=== PATIENT | female | born 1950 | race American Indian/Alaskan Native ===

== ENCOUNTER 2019-08-07 03:39 | Emergency (ER) | payer OTHER, MEDICARE ==
[~2019-08-07] VITALS: Ht 162.6 cm; Wt 77.1 kg
[2019-08-07] MEDS ORDERED: TIZANIDINE HCL4 MG PO (03:51)
[2019-08-07] MEDS ORDERED: AUGMENTIN 875-1 EACH PO (03:52)
[2019-08-07] MEDS ORDERED: FORTAMET500 MG PO (03:53)
[2019-08-07] MEDS ORDERED: PROBIOTIC & AC1 EACH PO (03:54)
[2019-08-07] MEDS ORDERED: FLAX SEED OIL1000 MG PO (03:55)
[2019-08-07] MEDS ORDERED: FUROSEMIDE40 MG PO (03:55)
[2019-08-07] MEDS ORDERED: NOVOLOG FL100 UNIT/1 SUB-Q (03:58)
[2019-08-07] MEDS ORDERED: ZESTRIL2.5 MG PO (03:59)
[2019-08-07] MEDS ORDERED: LEVEMIR FL100 UNIT/2 SQ (04:00)
[2019-08-07] MEDS ORDERED: PERCOCET 5-3251 EACH PO (05:27)
--- OUTSIDE RECORDS SUMMARY | 2019-08-07 05:42 | XMS ---
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 ED/UCC VISIT TRACKING (12 MO.) 08/07/2019 03:40 [facility] TYPE: Emergency COMPLAINT: - RT LEG PAIN [facility]2019 [facility] DIAGNOSES: 99577. POSS INFECTION ON INCISION SITE, [address] [place] [id number]. Encounter for other specified surgical aftercare 11/20/2018 14:29 Chucho ORELLANA TYPE: Emergency COMPLAINT: - fall injury 10/22/2018 14:03 [facility] COMPLAINT: - SICK THE LAST 4 DAYS COUGHING DIAGNOSES: 1. Cough 10/07/2018 18:17 Chucho ORELLANA TYPE: Emergency COMPLAINT: - feet swelling 09/23/2018 11:14 Chucho Jean ShanonCamille ORELLANA TYPE: Emergency COMPLAINT: - high blood sugar 08/10/2018 22:41 Chucho ORELLANA TYPE: Emergency COMPLAINT: - hand laceration INPATIENT VISIT TRACKING (12 MO.) 10/07/2018 18:17 Chucho ORELLANA TYPE: General Medicine COMPLAINT: - feet swelling [email or web address]
== END 2019-08-07 05:48 | disposition home or self-care (01) ==
LOC: ED 03:39
DX: M54.31 Sciatica, right side (principal); E11.9 Type 2 diabetes mellitus without complications; Z79.4 Long term (current) use of insulin; Z79.899 Other long term (current) drug therapy
CPT/HCPCS: 72131; 96374; 96375; 99284-25; J1885; J3010